=== PATIENT | female | born 2005 | race Asian ===

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

== ENCOUNTER → 2024-02-19 | Outpatient (CLI) | payer OTHER ==
--- NOTE | 2024-02-19 12:06 | XR ---
EXAMINATION TYPE: XR chest 2V DATE OF EXAM: 02/19/2024 11:49 AM COMPARISON: None. CLINICAL INDICATION: Female, 19 years old with history of Z00.00 ENCNTR FOR GENER R20.2 Z11.59 E55.9 J45.909, shortness of breath TECHNIQUE: Frontal and lateral views of the chest are obtained. FINDINGS: There is no focal air space opacity, pleural effusion, or pneumothorax seen. The cardiac silhouette size is within normal limits. The osseous structures are intact. IMPRESSION: No acute cardiopulmonary process. [facility], , 02/19/2024 12:04 PM
[2024-02-19 22:56] LABS: Basophils # (A) 0.04 X 10*3/uL (0.00-0.10); Basophils % (A) 0.5 %; Eosinophils # (A) 0.15 X 10*3/uL (0.04-0.35); HCT 43.8 % (37.2-46.3); HGB 14.3 g/dL (12.0-15.0); MCHC 32.6 g/dL (32.0-37.0); Mean Platelet Volume 10.2 FL (9.5-12.2); Monocytes # (A) 0.67 X 10*3/uL (0.20-1.00); Monocytes % (A) 8.7 %; NRBC Per 100 WBC 0 X 10*3/uL (0.00-0.01); Neutrophils % (A) 62.5 %; Platelet Count 189 X 10*3/uL (140-440); RBC 4.61 X 10*6/uL (4.10-5.20); RDW 11.6 % (11.5-14.5); WBC 7.68 X 10*3/uL (4.50-10.00)
[2024-02-19 23:33] LABS: % Iron Saturation 29.66 (12.00-45.00); ALT 15 U/L (8-44); AST 21 U/L (13-35); Albumin 4.8 g/dL (3.8-4.9); Albumin/Globulin Ratio 1.78 Ratio (1.60-3.17); Alkaline Phosphatase 62 U/L (41-126); BUN/Creat Ratio 9.88 Ratio (12.00-20.00); Blood Urea Nitrogen 7.9 mg/dL (9.0-27.0); Calcium 9.5 mg/dL (8.7-10.3); Chloride 101 mmol/L (96-109); Chol/HDL Ratio 2.51 Ratio; Ferritin 51.4 ng/mL (10.0-291.0); Globulin 2.7 g/dL (1.6-3.3); Glucose 96 mg/dL (70-110); Iron 113 UG/DL (50-170); LDL Cholesterol,Calculated 57.8 mg/dL (0.0-131.0); Magnesium 1.9 mg/dL (1.5-2.4); Potassium 4.2 mmol/L (3.5-5.5); Sodium 139 mmol/L (135-145); Total Bilirubin 0.4 mg/dL (0.3-1.2); Total Iron Binding Capacity 381 UG/DL (228-460); Total Protein 7.5 g/dL (6.2-8.2)
== END | disposition home or self-care (01) ==
LOC: LABWHC1 11:08
PROVIDERS: ATTEND Internal Medicine
DX: Z00.00 Encounter for general adult medical examination without abnormal findings (principal); Z11.59 Encounter for screening for other viral diseases; E55.9 Vitamin D deficiency, unspecified; J45.909 Unspecified asthma, uncomplicated; R20.2 Paresthesia of skin; R00.2 Palpitations
CPT/HCPCS: 36415; 71046; 80053; 80061; 82306; 82607; 82728; 82746; 83540; 83550; 83735; 84443; 85025; 86803